=== PATIENT | female | born 1985 | race Two or more races ===

== ENCOUNTER 2016-10-29 13:58 | Emergency (ER) | payer OTHER ==
[2016-10-29] MEDS ORDERED: IBUPROFEN 600 MG TABLET ONE (14:55)
[2016-10-29] MEDS ORDERED: ACETAMINOPHEN 325 MG TABLET ONE (14:55)
--- NOTE | 2016-10-29 15:34 | RAD ---
Name: СВЕТЛАНА EDWARDS Exam: Two-view chest Comparison: 07/09/2016 Clinical history: Cough Findings: 2 views of the chest are submitted. The heart mediastinum and hilar structures are within normal limits. There is no failure, infiltrate, pleural effusion or pneumothorax. Regional skeleton is within normal limits. Impression: No acute cardiopulmonary process
== END 2016-10-29 16:25 | disposition home or self-care (01) ==
LOC: ED 13:58
DX: J06.9 Acute upper respiratory infection, unspecified (principal); R19.7 Diarrhea, unspecified; F17.210 Nicotine dependence, cigarettes, uncomplicated
CPT/HCPCS: 71020; 99283 ×2; A9270 ×2